=== PATIENT | female | born 1945 | race African-American/Black ===

== ENCOUNTER 2017-06-29 19:23 | Emergency (ER) | payer MEDICARE, OTHER ==
[~2017-06-29] VITALS: Ht 175.3 cm; Wt 90.0 kg
[2017-06-29 23:08] VITALS: BP 128/56
== END 2017-06-30 00:12 | disposition home or self-care (01) ==
LOC: ER 19:53
DX: S40.012A Contusion of left shoulder, initial encounter (principal); E11.9 Type 2 diabetes mellitus without complications; I10 Essential (primary) hypertension; E78.00 Pure hypercholesterolemia, unspecified; Z96.651 Presence of right artificial knee joint; Z88.2 Allergy status to sulfonamides; W01.0XXA Fall on same level from slipping, tripping and stumbling without subsequent striking against object, initial encounter; Y93.89 Activity, other specified; Y92.488 Other paved roadways as the place of occurrence of the external cause
CPT/HCPCS: 73030; 73060; 99284; A4565